=== PATIENT | female | born 1945 | race Caucasian/White ===

== ENCOUNTER 2021-10-16 10:35 | Inpatient (IN) | payer MEDICARE ==
[2021-10-10 15:29] LABS: BASOPHILS % (AUTO) 0.6 % (0-1); EOSINOPHILS # (AUTO) 0.2 X10'3 (0-0.9); EOSINOPHILS % (AUTO) 2.9 % (0-6); LYMPHOCYTES # (AUTO) 1.3 X10'3 (1.1-4.8); LYMPHOCYTES % (AUTO) 17.3 % (21-51); MEAN CORPUSCULAR HEMOGLOBIN 32.4 PG (27.0-31.0); MEAN CORPUSCULAR HGB CONC 34.6 g/dL (33.0-36.5); MEAN CORPUSCULAR VOLUME 93.8 FL (78-98); MEAN PLATELET VOLUME 8.4 FL (7.4-10.4); MONOCYTES # (AUTO) 0.5 X10'3 (0-0.9); NEUTROPHILS # (AUTO) 5.5 X10'3 (1.8-7.7); NEUTROPHILS % (AUTO) 72.2 % (42-75); PRE OP HEMATOCRIT 40.2 % (35.0-45.0); PRE OP HEMOGLOBIN 13.9 g/dL (12.0-16.0); PRE OP PLATELET COUNT 226 X10'3 (140-440); RED BLOOD COUNT 4.28 X10'6 (4.20-5.60); RED CELL DISTRIBUTION WIDTH 13.9 % (11.5-14.5)
[2021-10-10 16:11] LABS: ALBUMIN 3.8 G/DL (3.4-5.0); ALBUMIN/GLOBULIN RATIO 1.3 (1.1-1.5); ALKALINE PHOSPHATASE 63 IU/L (46-116); BLOOD UREA NITROGEN 18 MG/DL (7-18); BUN/CREATININE RATIO 19.8 (6.6-38.0); CALCIUM 8.3 MG/DL (8.5-10.1); CHLORIDE 106 MMOL/L (99-107); CREATININE 0.91 MG/DL (0.40-0.90); PRE OP ALT 19 U/L (30-65); PRE OP ANION GAP 8 (8-16); PRE OP BILIRUB, TOTAL 0.4 MG/DL (0.0-1.0); PRE OP POTASSIUM 4.3 MMOL/L (3.4-5.1); PRE OP SODIUM 143 MMOL/L (135-145); TOTAL CARBON DIOXIDE 28.6 MMOL/L (24-32); TOTAL PROTEIN 6.8 G/DL (6.4-8.2); eGFR 60 ML/MIN
[2021-10-10 16:13] LABS: PRE OP GLUCOSE 90 MG/DL (70-104)
[2021-10-10 16:22] LABS: PRE OP AST 18 U/L (10-37)
[2021-10-16] VITALS (21 sets, daily range): BP systolic 114–162; BP diastolic 48–88
[~2021-10-16] VITALS: Ht 154.9 cm; Wt 71.4 kg
[~2021-10-16 10:35] MED LIST: BUPIVAcaine/PF 2.5 mg/ml (0.25%) 30ml vial ONE; CALCIUM GUMMY PO; CHOL20004 PO; CYAN50009 PO; LIDOcaine 1% 30ml preserv. free vial ONE; MAGN100T PO; MULT-1085 PO; OMEP40CA21 PO; ceFAZolin inj. 2,000 MG in dextrose 5%-water 100 ML IV ONE; famotidine 20mg tablet PO ONE; ringers solution, lacted 1,000 ML IV SCH
[2021-10-16] MEDS ORDERED: proCHLORperazine 10 MG/2 ml inj IV PRN (10:50)
[2021-10-16] MEDS ORDERED: meperidine/PF 25mg/ml syringe IV PRN ×3 (10:50)
[2021-10-16] MEDS ORDERED: ondansetron/PF 4mg/2ml inj IV PRN ×2 (10:50→14:45)
[2021-10-16] MEDS: ringers solution, lacted 1,000 ML IV SCH ×3 (10:50→21:47)
[2021-10-16] MEDS ORDERED: midazolam 1 mg/ML 2ml injection ONE (11:58)
[2021-10-16] MEDS ORDERED: fentaNYL /PF 50mcg/ml 5ml ampule ONE (11:58)
[2021-10-16] MEDS ORDERED: LIDOcaine 2% (20mg/ml) 5ml vial ONE (11:59)
[2021-10-16] MEDS ORDERED: propofol inj 20 ML IV ONE (11:59)
[2021-10-16] MEDS ORDERED: sevoflurane 250ml liquid IH ONE (12:20)
[2021-10-16] MEDS ORDERED: glycopyrrolate 0.2mg/ml inj ONE (12:20)
[2021-10-16] MEDS ORDERED: rocuronium 10mg/ml inj IV ONE ×2 (12:31→14:13)
[2021-10-16] MEDS ORDERED: dexamethasone sod phosphate 4mg/ml inj. ONE (12:35)
[2021-10-16] MEDS ORDERED: meperidine/PF 25mg/ml syringe ONE (14:17)
[2021-10-16] MEDS ORDERED: ondansetron/PF 4mg/2ml inj ONE (14:33)
[2021-10-16] MEDS ORDERED: acetaminophen 325mg rectal suppository RC ONE (14:39)
[2021-10-16] MEDS ORDERED: sugammadex 200mg/2ml injection IV ONE (14:39)
[2021-10-16] MEDS ORDERED: neostigmine methylsulfate 1 MG/ML 10ml vial ONE (14:39)
[2021-10-16] MEDS ORDERED: acetaminophen 1,000mg/100ml IV 100 ML IV ONE (14:40)
[2021-10-16] MEDS ORDERED: oxyCODONE/APAP 5-325mg tablet PO PRN (14:45)
[2021-10-16] MEDS ORDERED: naloxone 0.4 mg/ml inj IV PRN (14:45)
--- NOTE | 2021-10-16 14:50 | NUR ---
Received from OR via ORTHO BED , accompanied by Anesthesiologist LADI and report given by Anesthesiolgist. 4 ABDOMINAL LAP SITES PRESENT WITH DREMABOND PRESENT. NO DRAINAGE EVIDENT AT THIS ITME.10L MASK ON WITH 100% SATRUATIONS. 20GPIV IN RIGHT UE RUNNING LR AT 100. SCDS DONNED. Addendum: 10/16/21 at 1502 by Ehsan Hinson RN, RN Amended: Links added.
--- NOTE | 2021-10-16 16:30 | NUR ---
PATIENT VSS. PAIN TO UPPER CHEST FROM CO2 PERSISTS. PATIENT WITH NO C.O PAIN TO ABDOMEN. NSR HR. PATIENT RN BRENDON PRESENT TO ACCEPT CARE OF PATIENT. BED LOW. CALL LIGHT PRESENT. VSS. PATIENT BELONGINGS AT BEDSIDE WHICH WERE BROUGHT BY HER FAMILY. HAS MET ALL DC CRITERIA. Addendum: 10/16/21 at 1700 by Ehsan Britton - DARCY TAVERAS Amended: Links added.
--- NOTE | 2021-10-16 16:35 | NUR ---
Received pt from recovery via bed. Pt having upper left chest post op gas pain. Will medicate if not improved. Encourage pt to ambulate as soon as able to reduce the pain. Family at bedside. Call light in reach, bed low, vss. Pt verbalizes understanding of POC
[2021-10-16] MEDS: HYDROmorphone inj. 0.5 MG/0.5 ML DISP.SYRIN IV PRN ×3 (16:53→21:44)
--- NOTE | 2021-10-16 18:57 | NUR ---
Problems reprioritized. Patient report given, questions answered & plan of care reviewed with Annie RN.
--- NOTE | 2021-10-16 19:30 | NUR ---
wears [place] pad; barely able to amb to bathroom without saturating pad Addendum: 10/17/21 at 0510 by Luz Andino RN Amended: Links added.
[2021-10-16] MEDS: heparin, porcine 5000 units/ml vial SQ SCH (21:46)
[2021-10-17] MEDS: HYDROmorphone inj. 0.5 MG/0.5 ML DISP.SYRIN IV PRN ×2 (00:29→03:25)
[2021-10-17 02:00] VITALS: BP 98/44
[2021-10-17] MEDS: ringers solution, lacted 1,000 ML IV SCH ×3 (02:05→20:18)
[2021-10-17 06:00] VITALS: BP 111/44
[2021-10-17 06:45] LABS: BASOPHILS % (AUTO) 0.2 % (0-1); EOSINOPHILS % (AUTO) 0 % (0-6); HEMATOCRIT 39.1 % (35.0-45.0); HEMOGLOBIN 13.3 g/dl (12.0-16.0); LYMPHOCYTES # (AUTO) 0.7 X10'3 (1.1-4.8); LYMPHOCYTES % (AUTO) 8.3 % (21-51); MEAN CORPUSCULAR HEMOGLOBIN 31.6 PG (27.0-31.0); MEAN CORPUSCULAR HGB CONC 34.1 g/dL (33.0-36.5); MEAN CORPUSCULAR VOLUME 92.8 FL (78-98); MEAN PLATELET VOLUME 8.2 FL (7.4-10.4); MONOCYTES # (AUTO) 0.6 X10'3 (0-0.9); MONOCYTES % (AUTO) 6.8 % (2-12); NEUTROPHILS # (AUTO) 7.3 X10'3 (1.8-7.7); NEUTROPHILS % (AUTO) 84.7 % (42-75); PLATELET COUNT 232 X10'3 (140-440); RED BLOOD COUNT 4.21 X10'6 (4.20-5.60); RED CELL DISTRIBUTION WIDTH 13.2 % (11.5-14.5); WHITE BLOOD COUNT 8.6 X10'3 (4.5-11.0)
[2021-10-17 06:50] LABS: ALBUMIN 3.7 G/DL (3.4-5.0); ANION GAP 11 (8-16); BLOOD UREA NITROGEN 6 MG/DL (7-18); BUN/CREATININE RATIO 9.5 (6.6-38.0); CALCIUM 8.6 MG/DL (8.5-10.1); CHLORIDE 102 MMOL/L (99-107); CREATININE 0.63 MG/DL (0.40-0.90); GLUCOSE 128 MG/DL (70-104); POTASSIUM 4.1 MMOL/L (3.5-5.1); SODIUM 139 MMOL/L (135-145); TOTAL CARBON DIOXIDE 26.3 MMOL/L (24-32); eGFR > 90 ML/MIN
[2021-10-17] MEDS: heparin, porcine 5000 units/ml vial SQ SCH ×2 (08:00→20:14)
[2021-10-17 10:00] VITALS: BP 136/68
[2021-10-17] MEDS ORDERED: acetaminophen 325mg tablet PO PRN (11:35)
--- NOTE | 2021-10-17 12:42 | NUR ---
Nutrition consult: Pt s/p Mack fundoplication, seen at bedside for written and verbal nutrition therapy education which includes diet progression and ONS coupons. Pt states she has already read materials provided [employer]PER[employer] and has food and protein drinks at home that are appropriate for diet order on discharge. All of patient's questions were answered at this time. RD contact information provided and pt encouraged to reach out if needed. Will remain available. Addendum: 10/17/21 at [address] Amended: Links added.
--- NOTE | 2021-10-17 13:18 | NUR ---
postvoid bladder scan 785ml with pt report of discomfort. Charge nurse Briana TAVERAS in to st cath. pt per order.
[2021-10-17 14:08] VITALS: BP 115/53
--- NOTE | 2021-10-17 14:20 | NUR ---
Pt straight cathed for 1000mls pale yellow urine.
[2021-10-17] MEDS ORDERED: ACET-1008 PO (15:39)
[2021-10-17] MEDS ORDERED: LIDOcaine 2% 10ml TOPICAL JELLY (Urojet) TP ONE (15:45)
[2021-10-17 18:00] VITALS: BP 132/59
--- NOTE | 2021-10-17 18:10 | NUR ---
At 1645, pt voided 350ml of clear yellow urine with a post void residual of 328ml obtained by bladder scan. Pt reported no discomfort at this time. Pt reluctant to have saba placed. Informed pt of needing to void again soon to try to empty bladder. Pt verbalized understanding.
--- NOTE | 2021-10-17 18:12 | NUR ---
At 1745, pt voided 300ml of clear yellow urine with postvoid residual of 232ml bladder scan. Encouraged pt to continue to empty bladder.
[2021-10-17 22:00] VITALS: BP 133/49
[2021-10-18 05:00] VITALS: BP 122/55
--- NOTE | 2021-10-18 06:22 | NUR ---
Problems reprioritized. Patient report given, questions answered & plan of care reviewed with DARCY Yoo.
[2021-10-18 06:36] LABS: BASOPHILS % (AUTO) 0.5 % (0-1); EOSINOPHILS % (AUTO) 0.3 % (0-6); HEMATOCRIT 38.4 % (35.0-45.0); HEMOGLOBIN 13.2 g/dl (12.0-16.0); LYMPHOCYTES # (AUTO) 1.7 X10'3 (1.1-4.8); LYMPHOCYTES % (AUTO) 24.8 % (21-51); MEAN CORPUSCULAR HEMOGLOBIN 32.2 PG (27.0-31.0); MEAN CORPUSCULAR HGB CONC 34.3 g/dL (33.0-36.5); MEAN CORPUSCULAR VOLUME 93.7 FL (78-98); MONOCYTES # (AUTO) 0.5 X10'3 (0-0.9); MONOCYTES % (AUTO) 7.5 % (2-12); NEUTROPHILS # (AUTO) 4.5 X10'3 (1.8-7.7); NEUTROPHILS % (AUTO) 66.9 % (42-75); PLATELET COUNT 228 X10'3 (140-440); RED BLOOD COUNT 4.09 X10'6 (4.20-5.60); RED CELL DISTRIBUTION WIDTH 13.5 % (11.5-14.5); WHITE BLOOD COUNT 6.8 X10'3 (4.5-11.0)
[2021-10-18 06:41] LABS: ALBUMIN 3.3 G/DL (3.4-5.0); ANION GAP 8 (8-16); BLOOD UREA NITROGEN 7 MG/DL (7-18); BUN/CREATININE RATIO 9.9 (6.6-38.0); CALCIUM 8.5 MG/DL (8.5-10.1); CHLORIDE 106 MMOL/L (99-107); CREATININE 0.71 MG/DL (0.40-0.90); GLUCOSE 91 MG/DL (70-104); POTASSIUM 3.3 MMOL/L (3.5-5.1); SODIUM 144 MMOL/L (135-145); TOTAL CARBON DIOXIDE 29.6 MMOL/L (24-32); eGFR 80 ML/MIN
[2021-10-18] MEDS: heparin, porcine 5000 units/ml vial SQ SCH (09:37)
[2021-10-18 10:00] VITALS: BP 111/63
--- NOTE | 2021-10-18 11:45 | NUR ---
Dr. Bach and Dr Mohr aware of pt's PVR via bladder scan through the night, with no new orders. Pt stated that she has relief from the sensation to void after she urinates, and does not feel any further need to void, including during bladder scanning. Pt stated, "I'm tired of all the scanning. She agrees to to notify her MD, or visit the ER if she feels like she can't pee or has sensation of bladder fullness after voiding.
--- NOTE | 2021-10-18 11:45 | NUR ---
Dr Mohr was notified of pt's K = 3.3 and urinary retention (< 400cc as per P&P needed for straight cath). No new orders. stated pt may go home today per his DC instructions, and f/u w/ him at his office in 2 weeks, or sooner if needed. Dr Bach also rounded just prior to call from Dr Mohr and also agreed pt is stable for DC'g. Pt has friend at bedside who will drive her home. Addendum: 10/18/21 at 1405 by Naila Dominguez RN Clarification: P&P for intermittent catheterization is if retention is >400cc. Dr Bach and Dr. Mohr aware and no further catheterization orders given.
--- NOTE | 2021-10-21 16:35 | NUR ---
Case Management DC follow up: Spoke with Patient via telephone.S/P: Patient Reports: Denies: Acute/continuous CP,emergent SOB, resp distress, dyspnea, N/V, weakness, vertigo, syncope episodes, orthostatic hypotension, LEON, blurry vision, s/s of stroke/BE-FAST,dysphagia, dysuria,hematuria; however, verbalizes retention after voiding, and that her abdomen is firm to touch.Denies hematochezia, melena,unexplained fever, chills. Verbalizes her small abdominal incisions look fine; no s/s of infection, drainage, nor warmth to touch. Directed Patient to return to the ER for further evaluation regarding her retention and firm abdomen . Patient verbalized she does not want to sit in the ER for hours. Verbalized she sent a message via Portal to PCP MIR Granados regarding retention and is waiting for a call back. Addendum: 10/22/21 at 0824 by Luz Ward RN Scheduled follow up appointment with Dr. Mohr 10/31/21
== END 2021-10-18 12:40 | disposition home or self-care (01) | DRG 328 ==
LOC: PAS 10:35 → ORTHO 4S 14:46
PROVIDERS: ADMIT Surgery; ATTEND Surgery
PROC: 0DV44ZZ Restriction of Esophagogastric Junction, Percutaneous Endoscopic Approach (ICD-10-PCS; 2021-10-16)
PROC: 8E0W4CZ Robotic Assisted Procedure of Trunk Region, Percutaneous Endoscopic Approach (ICD-10-PCS; 2021-10-16)
PROC: 0BUT4JZ Supplement Diaphragm with Synthetic Substitute, Percutaneous Endoscopic Approach (ICD-10-PCS; principal; 2021-10-16 12:20)
DX: K44.9 Diaphragmatic hernia without obstruction or gangrene (principal); R33.9 Retention of urine, unspecified; K21.9 Gastro-esophageal reflux disease without esophagitis; Z88.5 Allergy status to narcotic agent; Z79.899 Other long term (current) drug therapy
CPT/HCPCS: 36415; 71045; 80048; 80053; 82948; 85025; 87081; 87811; 93005; A4618; C1758; C1781; G0378; J0131; J0690; J1100; J1170; J1644; J2175; J2250; J2405; J2704; J2710; J3010; J3490; J7060; J7120